=== PATIENT | female | born 1995 | race Caucasian/White ===

== ENCOUNTER 2018-05-09 08:00 | Emergency (ER) | payer OTHER ==
[2018-05-09] MEDS: ACETAMINOPHEN 325 MG TAB PO (08:24)
[2018-05-09 08:29] LABS: URINE PH (Dip) POC 6.5 (5.0-8.5)
[2018-05-09 08:29] LABS: URINE BLOOD (Dip) POC 1+ (NEGATIVE); URINE GLUCOSE (Dip) POC Negative (NEGATIVE); URINE KETONES (Dip) POC Trace (NEGATIVE); URINE LEUKOCYTE EST (Dip) POC 3+ (NEGATIVE); URINE NITRITE (Dip) POC Negative (NEGATIVE); URINE TOTAL PROTEIN POC 1+ (NEGATIVE)
[2018-05-09] MEDS: CEPHALEXIN 500 MG CAP PO (09:05)
== END 2018-05-09 09:09 | disposition home or self-care (01) ==
LOC: FTE 08:00
DX: M54.5 Low back pain (principal); R30.0 Dysuria
CPT/HCPCS: 81003; 81025; 99283